=== PATIENT | male | born 1955 | race Caucasian/White ===

== ENCOUNTER 2020-03-24 09:16 | Outpatient (CLI) | payer OTHER, SELFPAY ==
--- NOTE | ~2020-03-24 | US_ITS ---
EXAMINATION: US aorta [facility] DATE: 03/24/2020 10:31 INDICATION: Screening for abdominal aortic aneurysm. Hypertension and diabetes. TECHNIQUE: Grayscale, color Doppler, and pulsed Doppler images of the aorta and common iliac arteries were obtained. COMPARISON: None. FINDINGS: The proximal aorta measures 2.8 cm. The mid aorta measures 2.0 cm. The distal aorta measures 1.9 cm. The right common iliac artery measures 1.3 cm. The left common iliac artery measures 1.4 cm. IMPRESSION: 1. No abdominal aortic aneurysm. Reviewed, dictated and finalized at location A.
== END 2020-03-24 09:17 | disposition home or self-care (01) ==
PROVIDERS: Visit Provider Student in an Organized Health Care Education/Training Program
DX: Z13.6 Encounter for screening for cardiovascular disorders (principal); F17.201 Nicotine dependence, unspecified, in remission
CPT/HCPCS: 76706

== ENCOUNTER → 2020-11-14 10:11 | Outpatient (CLI) | payer OTHER, SELFPAY ==
--- NOTE | ~2020-11-14 | US_ITS ---
EXAMINATION: US soft tissue head and neck DATE: 11/14/2020 10:27 INDICATION: Skin nodule of the head located cephalad to the right eyebrow TECHNIQUE: Multiple grayscale and Doppler ultrasound images of the region of concern cephalad to the right eyebrow were obtained. COMPARISON: CT dated 01/03/2009 FINDINGS: 11 x 2 x 11 mm well-defined ovoid subgaleal mass corresponding to the palpable abnormality. No eviden t internal vascular flow on power color Doppler. There is no evident and involvement of the underlyin g calvarium which demonstrates a smooth echogenic cortical margin. IMPRESSION: 1. Well-defined 11 x 2 x 11 mm subgaleal opacities right supraorbital region. Differential would incl ude lipoma, dermoid cyst, epidermoid cyst and less likely trichilemmal cyst, hematoma or abscess in t he proper clinical setting. Malignancy either primary or metastatic and slow flow vascular malformati on would be less likely given the relatively well delineated margins and absence of evident bone invo lvement. Reviewed, dictated and finalized at location A. KER ON IMPRESSION: 1. Well-defined 11 x 2 x 11 mm subgaleal opacities right supraorbital region. D ifferential would include lipoma, dermoid cyst, epidermoid cyst and less likely trichilemmal cyst, hematoma or abscess in the proper clinical setting. Maligna ncy either primary or metastatic and slow flow vascular malformation would be l ess likely given the relatively well delineated margins and absence of evident bone involvement.
== END ==
PROVIDERS: PCP Student in an Organized Health Care Education/Training Program; Visit Provider Student in an Organized Health Care Education/Training Program
DX: R22.0 Localized swelling, mass and lump, head (principal)
CPT/HCPCS: 76536

== ENCOUNTER 2024-01-07 09:35 | Outpatient (CLI) | payer OTHER, SELFPAY ==
--- NOTE | ~2024-01-07 | US_ITS ---
EXAMINATION: US right upper quadrant DATE: 01/07/2024 10:10 INDICATION: Abnormal levels of other serum enzymes TECHNIQUE: Multiple grayscale and Doppler ultrasound images of the abdomen were obtained. COMPARISON: None available FINDINGS: The head and body of the pancreas are normal. The pancreatic tail is obscured by bowel gas. The liver is normal with normal echogenicity and echotexture. No surface nodularity. Normal hepatope deisy flow in the main portal vein. The gallbladder is normal with no abnormal wall thickening, pericho lecystic fluid or stones. The normal common bile duct measures 5 mm. There was no sonographic Avery sign. IMPRESSION: 1. Normal sonographic study of the gallbladder. Reviewed, dictated and finalized at location L. ERENCE ASSISTANT
--- NOTE | ~2024-01-07 | US_ITS ---
EXAMINATION: US retroperitoneal comp DATE: 01/07/2024 10:10 INDICATION: Disorder of kidney and ureter with decreased renal function TECHNIQUE: Multiple ultrasound grayscale images of the kidneys were obtained. COMPARISON: None. FINDINGS: The right kidney measures 11.6 x 6.2 x 6.9 cm. The left kidney measures 12.0 x 5.7 x 4.4 cm. The kidn eys demonstrate normal echogenicity. There are multiple small echogenic and shadowing stones at both the left and right kidneys. There is no hydronephrosis in either kidney. The bladder is normal. IMPRESSION: 1. Bilateral nonobstructing nephrolithiasis. No hydronephrosis at either kidney. Reviewed, dictated and finalized at location A. F LIBRARIAN WORK WITH BLIND IMPRESSION: 1. Bilateral nonobstructing nephrolithiasis. No hydronephrosis at either kidne y.
== END 2024-01-07 09:36 ==
PROVIDERS: PCP Student in an Organized Health Care Education/Training Program; Visit Provider Student in an Organized Health Care Education/Training Program
DX: R74.8 Abnormal levels of other serum enzymes (principal); N28.9 Disorder of kidney and ureter, unspecified; N20.0 Calculus of kidney
CPT/HCPCS: 76705; 76770

== ENCOUNTER 2024-06-16 11:26 | Emergency (ER) | payer OTHER, SELFPAY ==
--- NOTE | ~2024-06-16 | XR_ITS ---
EXAMINATION: XR elbow LT min 3V DATE: 06/16/2024 11:55 INDICATION: Left elbow pain. TECHNIQUE: 4 views of left elbow were obtained. COMPARISON: None. FINDINGS: Bone alignment is normal. No fracture. 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 There is heterotopic ossification lateral to the elbow joint and in the area of the triceps tendon. No elbow joint effusion. There is soft tissue swelling overlying the olecranon. IMPRESSION: 1. Severe elbow joint osteoarthritis. 2. Olecranon bursitis. 3. Heterotopic ossification in the area of the triceps tendon. If there is clinical concern for rani ps tendon tear, consider MRI. Reviewed, dictated and finalized at location A. IMPRESSION: 1. Severe elbow joint osteoarthritis. 2. Olecranon bursitis. 3. Heterotopic ossification in the area of the triceps tendon. If there is clin ical concern for triceps tendon tear, consider MRI.
[2024-06-16 11:36] VITALS: BP 132/77; PULSE 88; RESP 16; TEMP 36.7; O2SAT 99
[2024-06-16 11:39] VITALS: BP 132/77; PULSE 88; RESP 16; TEMP 36.7; O2SAT 99
--- NOTE | 2024-06-16 11:43 | ED.UPPEXIN ---
HPI - Extremity Injury (Upper) General Chief Complaint: Extremity Injury, Upper Stated Complaint: Left Elbow Pain Source: patient, RN notes reviewed and old records reviewed Mode of arrival: ambulatory Limitations: no limitations History of Present Illness HPI narrative: Patient presents with complaints of left elbow pain and swelling. He reports that while lifting weights 2 days ago he heard a snap and felt a pop. Shortly after that he began to notice the pain and swelling. Patient takes 2 hydrocodone daily at baseline, has not been taking anything additional for pain. He reports that his ADLs are not affected by this. He denies any fever, chills, sweats. He retains full range of motion, but does report a sensation of stiffness with this. He is right-hand dominant. He voices no other concerns or complaints today. Related Data Home Medications Medication Instructions Recorded Confirmed empagliflozin 25 mg tablet 25 mg PO DAILY 06/16/24 06/16/24 (Jardiance) glipizide 10 mg tablet, extended 10 mg PO QAM 06/16/24 06/16/24 release 24 hr hydrocodone 7.5 mg-acetaminophen 1 tablet PO BID 06/16/24 06/16/24 325 mg tablet levothyroxine 100 mcg tablet 100 mcg PO DAILY 06/16/24 06/16/24 losartan 100 mg tablet 100 mg PO DAILY 06/16/24 06/16/24 metformin 1,000 mg tablet 1,000 mg PO BID 06/16/24 06/16/24 simvastatin 10 mg tablet 10 mg PO HS 06/16/24 06/16/24 tadalafil 5 mg tablet 5 mg PO DAILY 06/16/24 06/16/24 Allergies Allergy/AdvReac Type Severity Reaction Status Date / Time No Known Allergies Allergy Mild Unverified 06/16/24 11:33 Review of Systems Review of Systems: All systems reviewed & are unremarkable except as noted in HPI and below Constitutional: Constitutional: Reports no additional constitutional complaints ENT: Reports system reviewed and no additional complaints, except as documented Cardiovascular: Cardiovascular: Reports no additional cardiovascular complaints Respiratory: Respiratory: Reports no additional respiratory complaints Gastrointestinal: Gastrointestinal: Reports no additional gastrointestinal complaints Musculoskeletal: Musculoskeletal: Reports no additional musculoskeletal complaints and Reports as per HPI Neurologic: Denies tingling and Denies paresthesias [facility] Family History Family History Mother Family history of lymphoma Father Family history of throat cancer Social History Social History Alcohol intake: current Comments At the time of my signature, I reviewed and agree with the nursing past medical, surgical, social, and family history. There is no relevant family history pertinent to the patient complaint. Exam Const: General: cooperative, no acute distress, alert and awake Orientation/consciousness: oriented to person, oriented to place and oriented to time HENMT: Head: normal to inspection Resp: Effort & Inspection: normal respiratory effort and able to speak in complete sentences Auscultation: clear to auscultation bilaterally, no crackles, no rales, no rhonchi and no wheezes Cardio: Palpation: normal PMI Rate: regular rate Rhythm: regular rhythm Heart sounds: S1 normal heart sound present and S2 normal heart sound present Neuro: General: oriented to person, oriented to place and oriented to time Cranial nerves: Yes CN's II-XII intact bilaterally Extrem: Left upper extremity: normal capillary refill and elbow/forearm tenderness, swelling and normal ROM; no unusual warmth Psych: Appearance: grossly normal Thought process: Normal thought process present Insight: Good insight present (Psych) Judgement: Good judgement present (Psych) Course Course Level of Care: Express Care Visit Vital Signs Vital signs: Vital Signs Temperature 98.0 F 06/16/24 11:36 Pulse Rate 88 06/16/24 11:36 Respiratory Rate 16 06/16/24 11:36 Blood Press
== END 2024-06-16 12:20 | disposition home or self-care (01) ==
PROVIDERS: Emergency Provider Nurse Practitioner Family; PCP Student in an Organized Health Care Education/Training Program
DX: M70.22 Olecranon bursitis, left elbow (principal); E78.00 Pure hypercholesterolemia, unspecified; N40.0 Benign prostatic hyperplasia without lower urinary tract symptoms; E11.9 Type 2 diabetes mellitus without complications; E03.9 Hypothyroidism, unspecified
CPT/HCPCS: 73080; 99213; A4565; G0463

== ENCOUNTER 2025-01-28 12:47 | Outpatient (CLI) | payer OTHER, SELFPAY ==
--- NOTE | ~2025-01-28 | US_ITS ---
Right forearm. ULTRASOUND (Doppler ultrasound interrogation techniques used as needed for this exam.) Ordering provider: Jennifer Leyva MD History: . eval forehad mass lipoma vs nerve tumor . Comparison: None. FINDINGS/impression: Subcutaneous isoechoic area is seen measuring 1.1 x 0.3 x 1.1 cm. A lipoma, epidermoid cyst and lymph nodes are possibilities. Follow-up and clinical correlation advised. Reviewed, dictated and finalized at location A.
--- NOTE | ~2025-01-28 | US_ITS ---
Upper right back scapular area ULTRASOUND (Doppler ultrasound interrogation techniques used as needed for this exam.) Ordering provider: Jennifer Leyva MD History: . eval back mass lipoma vs bursitis . Comparison: None. FINDINGS/impression: Subcutaneous isoechoic area is seen measuring 3.1 x 0.7 x 3.3 cm which may represent a lipoma clinica l correlation advised.. Reviewed, dictated and finalized at location A.
== END 2025-01-28 12:48 | disposition home or self-care (01) ==
LOC: MICIMG 12:47
PROVIDERS: PCP Student in an Organized Health Care Education/Training Program; Visit Provider Plastic Surgery
DX: R22.0 Localized swelling, mass and lump, head (principal); R22.2 Localized swelling, mass and lump, trunk
CPT/HCPCS: 76536; 76604

== ENCOUNTER → 2025-02-15 12:03 | Outpatient (REF) | payer OTHER, SELFPAY ==
--- OUTSIDE RECORDS SUMMARY | 2025-02-15 13:24 | XMS_ITS | Encounter Summary ---
Author Organization [facility] Address [address] [facility] [place] [address] Care Team Providers Care Self Sealing Fuel Tank Repairer Name Role Phone Teagan Quintanachary Ken SUAZO Primary Care Provider + Encounter Details Date Type Department Care Team (Late st Contact Info) Description 12/09/2024 Telephone [facility] - [facility]opedic Surgery [address], [facility] [address] [place] [address] Darrius Bowen MD [address] [place] [address] Social History Tobacco Use Types Packs/Day Years Used Date Smoking Tobacco: Former Cigarettes Q uit: 11/04/1989 Smokeless Tobacco: Never Alcohol Use Standard Drinks/Week Comments Yes 0 (1 standard drink = 0.6 oz pur e alcohol) socially PHQ-2 Answer Date Recorded Patient Health Questionnaire-2 Score 0 10/20/2024 Sex and Gender Information Value Date Recorded Sex Assigned at Not on file Legal Sex Male 9:25 AM CDT Gender Identity Not on file Sexual Orientation Not on file documented as of this encounter Miscellaneous Notes * Telephone Encounter - Mohinder-Tawny Saravia - 12/09/2024 10:19 AM CST Current Provider: Dr Bowen Reason for Call: Pt called and is wanting to know if he needs to drive in or can apt be changed to telephone visit? Please call him and let him know. Patient Call Back Number: [phone] AL CHIEF CREATIVE OFFICER documented in this encounter Plan of Treatment Upcoming Encounters Date Type Department Care Team (Late st Contact Info) Description 03/08/2025 9:45 AM CDT Office Visit [facility] - [facility]opedic Surgery [address], [place] [address] [place] [id number] Darrius Bowen MD [address] [place] [address] documented as of this encounter Visit Diagnoses Not on filedocumented in this encounter Care Teams Self Sealing Fuel Tank Repairer Relationship Specialty Start Date End Date Von Quintana DO [address] [place] [id number] PCP - General Family Medicine Geriatric Medicine 09/07/24 documented as of this encounter
--- OUTSIDE RECORDS SUMMARY | 2025-02-15 13:24 | XMS_ITS | Encounter Summary ---
Author Organization [facility] Address [address] [place] [address] Care Team Providers Care Modular Set Crew Member Name Role Phone Von Quintana Primary Care Provider + Encounter Details Date Type Department Care Team (Late st Contact Info) Description 03/10/2021 Prep for Procedure [facility] [place], [place] [id number] Ross Alba MD [address] [id number] Social History Tobacco Use Types Packs/Day Years Used Date Smoking Tobacco: Former Cigarettes 1.5 20 1 972 - 1991 Smokeless Tobacco: Never Alcohol Use Standard Drinks/Week Comments Yes 0 (1 standard drink = 0.6 oz pur e alcohol) social AUDIT-C Answer Date Recorded Q1: How often do you have a drink containing alc ohol? Monthly or less 06/20/2020 Average Number of Drinks Not on file 020 Frequency of Binge Drinking Not on file 06/04 PHQ-2 Answer Date Recorded PHQ-2 Score 0 11/05/2019 Sex and Gender Information Value Date Recorded Sex Assigned at Male 11/19/2024 8:40 AM GLUE MOUNTER OPERATOR Legal Sex Male 11:35 AM GLUE MOUNTER OPERATOR Gender Identity Male 11/19/2024 8:40 AM GLUE MOUNTER OPERATOR Sexual Orientation Not on file Occupation Industry Job Start Date Job End Date Not on file Not on file Not on file Not on file COVID-19 Exposure Response Date Recorded In the last month, have you been in contact with someone who was confirmed or suspected to have Coronavirus / COVID-19? No / Unsure 03/13/2021 8:02 AM CDT documented as of this encounter Plan of Treatment Upcoming Encounters Date Type Department Care Team (Late st Contact Info) Description 03/09/2025 10:00 AM CDT Laboratory Only [facility] [place] [address] [place] [address] Von Quintana DO [address] [place] [address] 04/20/2025 10:00 AM CDT Office Visit [facility] - [facility] [address] [facility], [facility] [address] [place] [address] Tomasa Sevilla MD [address] [facility], [facility] [address] [place] [address] documented as of this encounter Results * PRE-SURGICAL/PRE-PROCEDURE CORONAVIRUS (COVID 19) (03/10/2021 9:40 AM CDT) CORONAVIRUS SARS COV 2 PCR (RESP) NOT DETECTED NOT DETECTED 03/11/2021 4:41 PM CDT [email or web address] Comment: A Not Detected (negative) test result for this test means that SARS-CoV-2 RNA was not present in the specimen above the limit of detection. A negative result does not rule out the possibility of COVID-19 and should not be used as the sole basis for treatment or patient management decisions. If COVID-19 is still suspected, based on exposure history together with other clinical findings, re-testing should be considered in consultation with public health authorities. Laboratory test results should always be considered in the context of clinical observations and epidemiological data in making a final diagnosis and patient management decisions. This patient specimen was tested using an FDA EUA pooling method. Negative results from pooled testing should not be treated as definitive. If the patient's clinical signs and symptoms are inconsistent with a negative result or results are necessary for patient management, then the patient should be considered for individual testing. In very rare cases, estimated at about 8 in 1,000 (0.8%) or less patient specimens with low viral loads may not be detected in sample pools due to the decreased sensitivity of pooled testing. Please review the Fact Sheets and FDA authorized labeling available for health care providers and patients using the following websites: https://www.[employer]/home/Covid-19/HCP/rc- mqyw-zms5-feos-sheet.html https://www.[employer]/home/Covid-19/Patients/ cf-olbl-xai9-fact-sheet.html This test has been authorized by the FDA under an Emergency Use Authorization (EUA) for use by authorized laboratories. Due to the current public health emergency, [facility] is receiving a high volume of samples from a wide variety of swabs and media for COVID-19 testing. In order to serve patients during this public health crisis, samples from appropriate clinical sources are being tested. Negative test results derived from specimens received in non-commercially manufactured viral collection and transport media, or in media and sample collection kits not yet authorized by FDA for COVID-19 testing should be cautiously evaluated and the patient potentially subjected to extra precautions such as additional clinical monitoring, including collection of an additional specimen. Methodology: Nucleic Acid Amplification Test (NAAT) includes RT-PCR or TMA Additional information about COVID-19 can be found at the [facility] website: www.[email or web address]/Covid19. Test performed at [email or web address] [address] [place] [id number] Director: WENDY MCCRARY DO,MPH FIRST TEST UNKNOWN 03/10/2021 10:40 AM T [facility] EMPLOYED IN HEALTHCARE UNKNOWN 03/10/2021 10:40 AM T [facility] SYMPTOMATIC DEFINED BY CDC UNKNOWN 03/10/2021 10:40 AM T [facility] DATE OF SYMPTOM ONSET NO 03/10/2021 11:37 AM CDT [facility] HOSPITALIZATION STATUS UNKNOWN 03/10/2021 10:40 AM T [facility] PATIENT IN ICU UNKNOWN 03/10/2021 10:40 AM CDT [facility] RESIDENT OF CONGREGATE CARE UNKNOWN 03/10/2021 10:40 AM CDT [facility] NO 03/10/2021 11:37 AM CDT [facility] PATIENT'S RACE WHITE OR 03/10/2021 10:40 AM CDT [facility] ETHNICITY NONHISPANIC 03/10/2021 10:40 AM CDT [facility] SOURCE (QST) NASOPHARYNGEAL SWAB 03/10/2021 10:40 AM CDT [facility] NASOPHARYNGEAL SWAB / Unknown 03/10/2021 9:40 AM CDT Ross Alba MD MICROBIOLOGY - GENERAL ORDERABLE S Final Result Performing Organization Address City/[facility] Co de Phone Number [facility] [address] [place] [address], [email or web address] [address] [address], documented in this encounter Visit Diagnoses Diagnosis Positive colorectal cancer screening using Cologuard test- Primary documented in this encounter Additional Health Concerns Infection Onset Date Last Indicated Resolved Time COVID-19 Rule Out 03/10/2021 03/10/2021 03/11/2021 4:41 PM CDT Assessment Noted Time PHQ-9 Depression Total Score: 0 11/05/19 11:41 AM GLUE MOUNTER OPERATOR documented as of this encounter Care Teams Modular Set Crew Member Relationship Specialty Start Date End Date Von Quintana DO [address] [place] [id number] PCP - General FAMILY PRACTICE 11/05/19 documented as of this encounter
--- OUTSIDE RECORDS SUMMARY | 2025-02-15 13:24 | XMS_ITS | Encounter Summary ---
Author Organization [facility] Address [address] [facility] [place] [address] Care Team Providers Care Set Up And Charger Name Role Phone Von Quintana DO Primary Care Provider + Reason for Referral * Consultation (Urgent) - Closed Specialty Diagnoses / Procedures Referred By Contac t Referred To Contact Orthopedics Diagnoses Triceps tendon rupture, left, subsequent encounter Localized primary osteoarthritis of left elbow Olecranon bursitis of left elbow Von Quintana DO [address] [place] [address] Phone: tel: fax: [facility] - [facility]opedic Surgery [address] [place] [address] Phone: tel: Referral ID Status Reason Start Date Expiration Date V isits Requested Visits Authorized [id number] Closed Specialty Services Required 09/01/2024 09/01/2025 1 1 Encounter Details Date Type Department Care Team (Latest Contact Info) Description 09/01/2024 Transcribe Orders [facility] - Centralized Scheduling [address] [place] [address] Von Quintana DO [address] [place], [place] [phone] Triceps tendon rupture, left, subsequent encounter ; Localized primary osteoarthritis of left elbow; Olecranon bursitis of left elbow Social History Tobacco Use Types Packs/Day Years Used Date Smoking Tobacco: Never Assessed Sex and Gender Information Value Date Recorded Sex Assigned at Not on file Legal Sex Male 9:25 AM CDT Gender Identity Not on file Sexual Orientation Not on file documented as of this encounter Plan of Treatment Upcoming Encounters Date Type Department Care Team (Late st Contact Info) Description 03/08/2025 9:45 AM CDT Office Visit [facility] - [facility] [address], [place] [address] [place] [address] Darrius Bowen MD [address] [place] [address] Scheduled Referrals Name Type Priority Associated Diagnoses Orde r Schedule AMB REFERRAL TO ORTHOPEDICS Outpatient Referral Routine Triceps tendon rupture, left, subsequent encounter Localized primary osteoarthritis of left elbow Olecranon bursitis of left elbow 1 Occurrences starting 09/01/2024 until 09/01/2025 documented as of this encounter Visit Diagnoses Diagnosis Triceps tendon rupture, left, subsequent encounter- Primary Localized primary osteoarthritis of left elbow Olecranon bursitis of left elbow Olecranon bursitis documented in this encounter Care Teams Set Up And Charger Relationship Specialty Start Date End Date Von Quintana DO [address] [place] [id number] PCP - General Family Medicine Geriatric Medicine 09/07/24 documented as of this encounter
--- OUTSIDE RECORDS SUMMARY | 2025-02-15 13:24 | XMS_ITS | Clinical Summary ---
Author Organization [facility] Address [facility] [place] [address] Care Team Providers Care Electrical Instrument Maker Name Role Phone ClaytonbrendaMarlee romero Ken SUAZO Primary Care Provider + Allergies No known active allergies Medications fish oil 1000 MG Cap capsule Take 1 capsule (1,000 mg total) by mouth 2 (two) times daily. Active NARCAN 4 MG/0.1ML nasal spray 020 Active naproxen 500 MG tablet Take 1 tablet (500 mg total) by mouth 2 (two) times daily as needed. Active fluticasone propionate 50 MCG/ACT nasal spray 1 spray by Each Nostril route nightly. Active HYDROcodone-ac etaminophen (NORCO) 7.5-325 MG tablet TAKE 1 TABLET BY MOUTH ONCE DAILY TO TWICE DAILY NEEDED FOR 30 DAYS 022 Active CONTOUR NEXT TEST test stripIndicatio ns:Type 2 diabetes mellitus without complication, without long-term current use of insulin ([facility]/HCC [facility]) USE 1 NEW STRIP TO CHECK GLUCOSE ONCE DAILY DIRECTED 100 strip 1 022 Active testosterone cypionate (DEPO TESTOSTERONE) 200 MG/ML injection INJECT 0.5 (ONE-HALF) ML (CC) INTRAMUSCULARLY ONCE A WEEK, EVERY 7 DAYS 023 Active BD INTEGRA SYRINGE 21G X 1-2 3 ML Misc USE 1 SYRINGE NEEDED 023 Active omeprazole (PRILOSEC) 40 MG capsuleIndicat ions:Gastroeso phageal reflux disease, unspecified whether esophagitis present Take 1 capsule by mouth once daily 60 capsule 1 024 Active glipiZIDE XL (GLUCOTROL XL) 10 MG 24 hr tabletIndicati ons:Type 2 diabetes mellitus with microalbuminur ia, without long-term current use of insulin ([facility] HHS/HCC) Take 2 tablets (20 mg total) by mouth daily with breakfast. Do not break or crush tablet 180 tablet 1 025 Active levothyroxine (SYNTHROID) 100 MCG tabletIndicati ons:Hypothyroi dism, unspecified type Take 1 tablet by mouth once daily 90 tablet 1 025 Active metFORMIN (GLUCOPHAGE) 1000 MG tabletIndicati ons:Type 2 diabetes mellitus without complication, without long-term current use of insulin ([facility] HHS/HCC) TAKE 1 TABLET BY MOUTH TWICE DAILY WITH MEALS 180 tablet 1 025 Active tadalafil (CIALIS) 5 MG tablet Take 1 tablet (5 mg total) by mouth daily. 025 Active simvastatin (ZOCOR) 10 MG tabletIndicati ons:Hyperlipid emia associated with type 2 diabetes mellitus ([facility] HHS/HCC) TAKE 1 TABLET BY MOUTH ONCE DAILY AT BEDTIME 90 tablet 025 Active JARDIANCE 25 MG tabletIndicati ons:Type 2 diabetes mellitus with microalbuminur ia, without long-term current use of insulin ([facility] HHS/HCC) Take 1 tablet by mouth once daily 90 tablet 025 Active amLODIPine (NORVASC) 5 MG tabletIndicati ons:Stage 3a chronic kidney disease ([facility]),Hype rtension associated with type 2 diabetes mellitus ([facility] HHS/HCC) Take 1 tablet by mouth once daily 90 tablet 025 Active tadalafil (CIALIS) 20 MG tabletIndicati ons:Erectile dysfunction, unspecified erectile dysfunction type Take 0.5-1 tablets (10-20 mg total) by mouth daily as needed for Erectile Dysfunction. 30 tablet 023 2024 Discontinued(F ormulary change) JARDIANCE 25 MG tabletIndicati ons:Type 2 diabetes mellitus with microalbuminur ia, without long-term current use of insulin ([facility] HHS/HCC) Take 1 tablet by mouth once daily 90 tablet 024 03/24/ 2025 Discontinued simvastatin (ZOCOR) 10 MG tabletIndicati ons:Hyperlipid emia associated with type 2 diabetes mellitus (CMS/HCC HHS/HCC) TAKE 1 TABLET BY MOUTH ONCE DAILY AT BEDTIME 90 tablet 024 2024 Discontinued amLODIPine (NORVASC) 5 MG tabletIndicati ons:Stage 3a chronic kidney disease (CMS/HCC),Hype rtension associated with type 2 diabetes mellitus (CMS/HCC HHS/HCC) Take 1 tablet (5 mg total) by mouth daily. 30 tablet 1 025 2024 Discontinued Active Problems Problem Noted Date Diagnosed Date Atherosclerosis of aorta 09/15/2024 Stage 3a chronic kidney disease 11/26/2022 Positive colorectal cancer screening using Colog uard test 02/03/2021 Overview (02/03/2021): Added automatically from request for surgery [id number] Chronic low back pain 10/11/2020 Renal colic 10/11/2020 BMI 26.0-26.9,adult 03/15/2020 Arthritis of right wrist 11/05/2019 Hypothyroidism Hyperlipidemia associated wi th type 2 diabetes mellitus (CMS/HCC HHS/HCC) Hypertension associated with type 2 diabetes mellitus (CMS/HCC HHS/HCC) Diabetes mellitus (CMS/HCC HHS/HCC) Arthritis Encounters Date Type Department Care Team Description 02/08/2025 Telephone [facility] [address] [address] Marlee Montero, DO Referral 01/28/2025 Scan Historic Futures INFO SRVCS Scanned, [facility] Ultrasound (SCAN) 01/25/2025 Telephone [facility] [address] [address] Marlee Montero, DO Record Request 01/21/2025 1:00 PM CDT Office Visit [facility] [address] [address] Marlee Montero, DO Lab Results (The patient presents for follow up on lab work. ); Hypertension (The patient presents for follow up on HTN ) 01/21/2025 Travel 01/14/2025 9:40 AM CDT Allied Health/Nurse Visit [address] [address] Marlee Montero, DO Hypertension 01/14/2025 9:20 AM CDT Laboratory Only [address] [address] Marlee Montero, DO 01/14/2025 Travel 12/17/[address] [address] Marlee Montero, Results 12/16/[address] [address] Marlee Montero, DO Referral 12/09/2024 Scan Coresonic INFO SRVCS Scanned, [facility] 11/30/2024 1:00 PM THERAPY SITE COORDINATOR Laboratory Only [address] [address] Marlee Montero, 11/30/2024 Travel 11/19/2024 8:20 AM THERAPY SITE COORDINATOR Office Visit [address] [address] Marlee Montero, DO Diabetes (Patient did not have labs completed. Will check A1C today ) 11/19/2024 Travel from Last 3 Months Immunizations Immunization Administration Dates Next Due Influenza Adult (Generic) 10/23/2023(Def erred: Patient Refused),07/19/2020 PFIZER COVID-19 (ORIGINAL FORMULATION, PURPLE CAP) mRNA, LNP-S, PF, 30 MCG/0.3 ML DOSE 02/01/2021 Pneumococcal (Pneumovax 23) 07/03/2019 Pneumococcal (Prevnar 13) 10/11/2020 Pneumococcal (Prevnar 20) 07/29/2024 Shingrix 06/07/2023,01/10/2023,10/21/2020 Tdap (Boostrix) 07/03/2019 Family History Medical History Relation Comments Cancer Father throat cancer Cancer Mother lymph node cance r Relation Status Comments Daughter Alive Father (Age 42) of cancer throat cancer Mother (Age 60s) of lymph node cancer Son 1 Alive Son 2 Alive Son 3 Alive Social History Tobacco Use Types Packs/Day Years Used Date Smoking Tobacco: Former Cigarettes 1.5 20 1 972 - 1991 Cigars Smokeless Tobacco: Never Tobacco Cessation:Counseling Given: Yes Comments:Quit, still smokes cigars when golfing Alcohol Use Standard Drinks/Week Comments Yes 6.7 (1 standard drink = 0.6 oz p ure alcohol) 4 cans of beer once a week AUDIT-C Answer Date Recorded Q1: How often do you have a drink containing alc ohol? Monthly or less 06/20/2020 Average Number of Drinks Not on file 020 Frequency of Binge Drinking Not on file 06/04 PHQ-2 Answer Date Recorded Patient Health Questionnaire-2 Score 0 11/19/2024 Sex and Gender Information Value Date Recorded Sex Assigned at Male 11/19/2024 8:40 AM THERAPY SITE COORDINATOR Legal Sex Male 11:35 AM THERAPY SITE COORDINATOR Gender Identity Male 11/19/2024 8:40 AM THERAPY SITE COORDINATOR Sexual Orientation Not on file Occupation Industry Job Start Date Job End Date Not on file Not on file Not on file Not on file Last Filed Vital Signs Vital Sign Reading Time Taken Comments Blood Pressure 114/76 01/21/2025 1:08 PM CDT Pulse 76 01/21/2025 1:08 PM CDT Temperature 36.4 C (97.5 F) 01/21/2025 1:08 PM CDT Respiratory Rate 16 01/21/2025 1:08 PM CDT Oxygen Saturation 98% 01/21/2025 1:08 PM CDT Inhaled Oxygen Concentration - - Weight 77.2 kg (170 lb 1.6 oz) 01/21/2025 1:08 P M CDT Height 177.8 cm (5' 10 ) 01/21/2025 1:08 PM CDT Body Mass Index 24.41 01/21/2025 1:08 PM CDT Plan of Treatment Upcoming Encounters Date Type Department Care Team (Late st Contact Info) Description 03/09/2025 10:00 AM CDT Laboratory Only [facility] [place] [address] [place] [address] Marlee Montero, [address] [place] [address] 04/20/2025 10:00 AM CDT Office Visit [facility] [address] [facility], [place] [address] [place] [address] Tomasa Sevilla MD 3 [facility], [place] [address] [place] [address] Health Maintenance Due Date Last Done Comments Annual Medicare Wellness Visit 05/17/2022 05/16/2021 Diabetes: Retinopathy Eye Exam 02/21/2025 02/26/2023 Postponed from 02/27/2024 (Future Appointment) Hemoglobin A1C 05/19/2025 11/19/2024, 07/06, 12/16/2023, Additional history exists Kidney Health Evaluation 07/29/2025 07/29/2024 Lipid Panel 07/29/2025 07/29/2024, 11/0 05/2023, 06/12/2022, Additional history exists RSV Immunization or 60+ Years (1 - Risk 60-74 years 1-dose series) 09/15/2025 Postponed fro m 2015 (Going to Outside Clinic) Colorectal Cancer Screening Colonoscopy (10 Years) 03/13/2026 03/13/2021, 03/13/2021, 03/13/2021 DTaP, Tdap and Td Vaccines (2 - Td or Tdap) 07/03/2029 07/03/2019 COVID-19 Vaccine ( - season) 2112 11/01/2021, 02/01/2021, 12/30/2020 Postponed from 07/05/2024 (Going to Outside Clinic) Colorectal Cancer Screening FIT-DNA (3 Years) Discontinued 07/26/2020 Hepatitis C Completed 06/12/2022 Zoster Vaccines Completed 06/07/2023, 030 07/2023, 10/21/2020 Pneumococcal Vaccine: 50+ Years Completed 07/29/2024, 10/11/2020, 07/03/2019 AAA SCREENING Completed 08/27/2024, 08/05, 04/08/2020 PHQ-2 (Physician [place]) Completed 11/19/2024 Meningococcal B Vaccine Aged Out No l onger eligible based on patient's age to complete this topic Meningococcal Vaccine Aged Out No wilman stef eligible based on patient's age to complete this topic RSV Immunizations Under 20 Months Aged Out No longer eligible based on patient's age to complete this topic Procedures Procedure Name Priority Date/Time Associated Diagnosis Comments ULTRASOUND GENERIC (SCAN ORDER) 01/28/2025 ULTRASOUND GENERIC (SCAN ORDER) 01/28/2025 BASIC METABOLIC PANEL Routine 01/14/2025 9:34 AM CDT Serum potassium elevated COLLECTION VENOUS BLOOD VENIPUNCTURE Routine 01/14/2025 9:30 AM CDT Serum potassium elevated COLLECTION VENOUS BLOOD VENIPUNCTURE Routine 11/30/2024 1:33 PM THERAPY SITE COORDINATOR Serum potassium elevated BASIC METABOLIC PANEL Routine 11/30/2024 1:33 PM THERAPY SITE COORDINATOR Serum potassium elevated COLLECT.CAPILLARY (FNGR,HEEL,EAR) Routine 11/19/2024 8:32 AM THERAPY SITE COORDINATOR Type 2 diabetes mellitus with microalbuminuria, without long-term current use of insulin ([facility]/HCC HHS/HCC) HEMOGLOBIN, GLYCOSYLATED Routine 11/19/2024 Type 2 diabetes mellitus with microalbuminuria, without long-term current use of insulin ([facility]/HCC HHS/HCC) CT CHEST WO CON Routine 08/27/2024 2:09 PM CDT Unintended weight loss LIPID PANEL Routine 07/29/2024 2:43 PM CDT Elevated serum GGT level Hyperlipidemia associated with type 2 diabetes mellitus Hypertension associated with type 2 diabetes mellitus Unintended weight loss DIABETIC RETINOPATHY EXAM (NEGATIVE)(SCAN ORDER) Routine 02/26/2023 HEPATITIS C ANTIBODY W/RFX TO HCV RNA Routine 06/12/2022 11:44 AM CDT Need for hepatitis C screening test COLONOSCOPY Routine 03/13/2021 10:03 AM CDT COLOGUARD (AMBULATORY) Routine 07/26/2020 Screening for colon cancer from Last 3 Months or Most Recently Relevant to Health Maintenance Results * ULTRASOUND GENERIC (SCAN ORDER) (01/28/2025) Only the most recent of2 resultswithin the time period is included. Anatomical Region Laterality Modality Other 01/28/2025 us [facility] Scanned SCANNING Final Resu lt * (ABNORMAL) BASIC METABOLIC PANEL (01/14/2025 9:34 AM CDT) Only the most recent of2 resultswithin the time period is included. SODIUM S/P/B 139 136 - 145 MMOL/L 01/14/2025 2:08 PM CDT [facility] POTASSIUM S/P/B 5.2(H) 3.5 - 5.1 MMOL/L 01/14/2025 2:08 PM CDT [facility] Comment:NO VISIBLE HEMOLYSIS CHLORIDE S/P/B 105 98 - 107 MMOL/L 01/14/2025 2:08 PM CDT [facility] CO2 24.5 21 - 32 MMOL/L 01/14/2025 2:08 PM CDT [facility] GLUCOSE 174(H) 70 - 99 MG/DL 01/14/2025 2:08 PM CDT [facility] BUN 47(H) 7 - 18 MG/DL 01/14/2025 2:08 PM CDT [facility] CREATININE S/P/B 1.94(H) 0.70 - 1.30 MG/DL 01/14/2025 2:08 PM CDT [facility] CALCIUM S/P/B 9.8 8.4 - 10.5 MG/DL 01/14/2025 2:08 PM CDT [facility] ANION GAP 9.5 5 - 15 MMOL/L 01/14/2025 2:08 PM CDT [facility] Comment:REFERENCE RANGE NOT ESTABLISHED OSMOLALITY (CALC) 304 MOSM/KG 025 2:08 PM CDT [facility] [place] Comment:REFERENCE RANGE NOT ESTABLISHED GFR ESTIMATE 37(L) >90 ML/MIN/1. 73 M2 01/14/2025 2:08 PM CDT [facility] GFR NOTES GFR REFERENCE S: 01/14/2025 2:08 PM T [facility] [place] Comment: THE ESTIMATED GFR IS CALCULATED USING THE 2020 CKD-EPI EQUATION. THE FOLLOWING CATEGORIES FOR GRADING RENAL FUNCTION ARE RECOMMENDED BY THE INTERNATIONAL SOCIETY OF NEPHROLOGY (KDIGO 2012 CLINICAL PRACTICE GUIDELINE). G1,NORMAL OR HIGH: >89 ml/min/1.73 m2 G2,MILDLY DECREASED: 60-89 ml/min/1.73 m2 G3A,MILDLY TO MODERATELY DECREASED: 45-59 ml/min/1.73 m2 G3B,MODERATELY TO SEVERELY DECREASED: 30-44 ml/min/1.73 m2 G4,SEVERELY DECREASED: 15-29 ml/min/1.73 m2 G5,KIDNEY FAILURE: <15 ml/min/1.73 m2 01/14/2025 9:34 AM CDT Marlee Montero DO LABORATORY Final Re sult [facility], [place] [address] [place] [address], [place] [phone] * HEMOGLOBIN, GLYCOSYLATED (11/19/2024) HGB A1C 8.3 % CHETAN BURCIAGA 11/19/2024 Marlee Montero DO LABORATORY Final Re sult [facility] [address] [place] [address], [place] * CT CHEST WO CON (08/27/2024 2:09 PM CDT) Anatomical Region Laterality Modality Chest Computed Tomogra phy 08/27/2024 2:41 PM CDT Impressions 08/27/2024 2:47 PM CDT IMPRESSION: ===== 1. No acute thoracic abdominal or pelvic abnormalities. No specific CT findings to explain weight loss. 2. Atherosclerotic aorta. 3. Diverticular disease with no evidence of diverticulitis. 4. Nonobstructing renal pelvic calcifications bilaterally. 5. Enlarged prostate. 6. Left inguinal hernia contains only fat. Referred By: MARLEE MONTERO Interpreted By: Jesus Alva MD, 08/27/2024 2:41 PM Narrative 08/27/2024 2:47 PM CDT [address] [address] EXAMINATION: CT Abdomen of the chest without contrast and CT of the and Pelvis with contrast [id number] EXAM DATE/TIME: 08/27/2024 1:55 PM REASON FOR EXAM: weight loss, abnormal labs Unintended weight loss of 20 pounds over the past 4 months. COMPARISON: None provided TECHNIQUE: Axial CT images of the chest obtained without the use of IV contrast agent. Subsequently axial CT images of the abdomen and pelvis are obtained following uneventful intravenous administration of 100 cc Isovue-370. Subsequent coronal and sagittal reformatted sequences are created for evaluation. A dose lowering technique was used for this procedure, which may include, but is not limited to, dose reduction technique, automated exposure control, iterative reconstruction, ALARA (As Low As Reasonably Achievable), or Image Gently techniques. FINDINGS: CHEST: Minimal breathing motion artifact in the mid and lower lungs limits evaluation for tiny nodules. No pleural effusion. No pneumothorax. Small areas of traction bronchiectasis in the medial right lung base. Calcified granuloma right middle lobe. No convincing abnormal soft tissue pulmonary nodules or masses. Central airways show no abnormal nodularity or masses. Left aortic arch. Thoracic aorta normal in caliber throughout with moderate calcifications. Heart size normal. No axillary or mediastinal lymphadenopathy. Calcified mediastinal lymph node again seen. Abdomen and pelvis: Liver and spleen normal in size and surface contour. No abnormal enhancing hepatic lesions. Gallbladder is contracted. Pancreas and adrenal glands unremarkable. Kidneys demonstrate symmetric uptake of contrast. No hydronephrosis or obstructive uropathy on either side. Multiple nonobstructing renal pelvic calcifications bilaterally. Ureters are normal in caliber. No hydronephrosis. Abdominal aorta normal in caliber throughout extensive calcifications and atherosclerotic disease. Bowel is normal in caliber. No evidence of bowel obstruction. Appendix normal. Prominent diverticular disease in the sigmoid colon. No significant free fluid in the pelvis. Enlarged prostate. Bladder contour is smooth. No fluid collections or lymphadenopathy in the abdomen or pelvis. Degenerative changes in the thoracolumbar spine. Focal sclerotic lesion in the left ilium is likely a bone island. No aggressive features identified. Left inguinal hernia contains only fat. ===== Procedure Note Jesus Alva MD - 08/27/[address] [address] EXAMINATION: CT Abdomen of the chest without contrast and CT of the andPelvis with contrast [id number] EXAM DATE/TIME: 08/27/2024 1:55 PM REASON FOR EXAM: weight loss, abnormal labs Unintended weight loss of 20 pounds over the past 4 months. COMPARISON: None provided TECHNIQUE: Axial CT images of the chest obtained without the use of IVcontrast agent. Subsequently axial CT images of the abdomen and pelvisare obtained following uneventful intravenous administration of 100 ccIsovue-370. Subsequent coronal and sagittal reformatted sequences arecreated for evaluation. A dose lowering technique was used for thisprocedure, which may include, but is not limited to, dose reductiontechnique, automated exposure control, iterative reconstruction, ALARA (AsLow As Reasonably Achievable), or Image Gently techniques. FINDINGS: CHEST: Minimal breathing motion artifact in the mid and lower lungs limitsevaluation for tiny nodules. No pleural effusion. No pneumothorax.Small areas of traction bronchiectasis in the medial right lung base.Calcified granuloma right middle lobe. No convincing abnormal soft tissuepulmonary nodules or masses. Central airways show no abnormal nodularityor masses. Left aortic arch. Thoracic aorta normal in caliber throughoutwith moderate calcifications. Heart size normal. No axillary ormediastinal lymphadenopathy. Calcified mediastinal lymph node againseen. Abdomen and pelvis: Liver and spleen normal in size and surface contour.No abnormal enhancing hepatic lesions. Gallbladder is contracted.Pancreas and adrenal glands unremarkable. Kidneys demonstrate symmetricuptake of contrast. No hydronephrosis or obstructive uropathy on eitherside. Multiple nonobstructing renal pelvic calcifications bilaterally.Ureters are normal in caliber. No hydronephrosis. Abdominal aorta normalin caliber throughout extensive calcifications and atheroscleroticdisease. Bowel is normal in caliber. No evidence of bowel obstruction.Appendix normal. Prominent diverticular disease in the sigmoid colon. Nosignificant free fluid in the pelvis. Enlarged prostate. Bladder contouris smooth. No fluid collections or lymphadenopathy in the abdomen orpelvis. Degenerative changes in the thoracolumbar spine. Focal scleroticlesion in the left ilium is likely a bone island. No aggressive featuresidentified. Left inguinal hernia contains only fat. ===== IMPRESSION: ===== 1. No acute thoracic abdominal or pelvic abnormalities. No specific CTfindings to explain weight loss. 2. Atherosclerotic aorta. 3. Diverticular disease with no evidence of diverticulitis. 4. Nonobstructing renal pelvic calcifications bilaterally. 5. Enlarged prostate. 6. Left inguinal hernia contains only fat. Referred By: MARLEE MONTERO Interpreted By: Jesus Alva MD, 08/27/2024 2:41 PM us Marlee Montero DO CT Final Re sult * (ABNORMAL) LIPID PANEL (07/29/2024 2:43 PM CDT) CHOLESTEROL 153 <200 MG/DL 07/30/2024 3:21 PM CDT [facility] TRIGLYCERIDES 252(H) <150 MG/DL 07/30/2024 3:21 PM CDT [facility] HDL 40(L) >40 MG/DL 07/30/2024 3:21 PM CDT [facility] LDL-C 63 <100 MG/DL 07/30/2024 3:21 PM CDT [facility] VLDL CALCULATION 50(H) 5 - 28 MG/DL 07/30/2024 3:21 PM CDT [facility] CHOL/HDL RATIO 3.8 0.0 - 4.0 07/30/2024 3:21 PM CDT [facility] LDL/HDL 1.6 0.41 - 2.13 07/30/2024 3:21 PM CDT [facility] NON HDL CHOLESTEROL 113 <140 MG/DL 07/30/2024 3:21 PM CDT [facility] 07/29/2024 2:43 PM CDT Marlee Montero DO LABORATORY Final Re sult Performing Organization Address [facility]/ZIP Co de Phone Number [facility] [address] [place] [address], * DIABETIC RETINOPATHY EXAM (NEGATIVE)(SCAN) (02/26/2023) [facility] Scanned SCANNING Final Resu lt Performing Organization Address [facility] Co de Phone Number [facility] ONBASE * HEPATITIS C ANTIBODY W/RFX TO HCV RNA ([facility]) (06/12/2022 11:44 AM CDT) HEPATITIS C AB NON-REACTI VE NON-REACT LISA [facility] SIGNAL TO CUTOFF 0.00 <[address] [facility] Comment: HCV antibody was non-reactive. There is no laboratory evidence of HCV infection. In most cases, no further action is required. However, if recent HCV exposure is suspected, a test for HCV RNA (test code 57841) is suggested. For additional information please refer to http://education.Baton/faq/EQP93u0 (This link is being provided for informational/ educational purposes only.) 06/12/2022 11:4 4 AM CDT 06/13/2022 5:14 AM CDT us Marlee Montero DO LABORATORY Final Re sult [facility] [address] [facility] [place] [address] * COLONOSCOPY (03/13/2021) us Documents Scanned SCANNING Final Result Performing Organization Address City/[facility]/ZIP Co de Phone Number [facility] * COLOGUARD (07/26/2020) COLOGUARD POSITIVE Stool specimen (specimen) 07/26/2020 us Marlee Montero DO AMBULATORY COLOGUARD (RT F) Final Result from Last 3 Months or Most Recently Relevant to Health Maintenance Insurance [employer] Care Teams Electrical Instrument Maker Relationship Specialty Start Date End Date Marlee Montero DO [address] [place] [id number] PCP - General FAMILY PRACTICE 11/05/19
--- OUTSIDE RECORDS SUMMARY | 2025-02-15 13:24 | XMS_ITS | Clinical Summary ---
Author Organization [facility] Address [address] [address] Care Team Providers Care Weatherization Administrator Name Role Phone Von Quintana DO Primary Care Provider + Source Comments [facility],non-owned Affiliates and Associated Physician Practices is amultiple site organization consisting of ambulatory clinics and hospital sitesin [place], [place], [place] and [place]. This disclosure is being madepursuant to the Care Everywhere program and may not contain all information available regarding this patient. Last updated 18.[facility] Allergies No known active allergies Medications * Be aware that medications may not be up to date on this document. Alwaysverify current medications with the patient. Jardiance 25 MG tablet Take 1 (one) tablet by mouth once daily 06/10/2024 Active fluticasone propionate (Flonase) 50 MCG/ACT nasal spray [place] 1 (one) spray into the nose at bedtime Active glipiZIDE CR 24hr (Glucotrol XL) 10 MG tablet TAKE 1 TABLET BY MOUTH ONCE DAILY WITH BREAKFAST. DO NOT BREAK OR CRUSH TABLET. 06/10/2024 Active HYDROcodone-ninfa taminophen ([place]) 7.5-325 MG tablet TAKE 1 TABLET BY MOUTH 1 TO 2 TIMES DAILY NEEDED 08/14/2024 Active levothyroxine (Synthroid) 100 MCG tablet Take 1 (one) tablet by mouth once daily 06/10/2024 Active losartan (Cozaar) 100 MG tablet Take 1 (one) tablet by mouth once daily 08/06/2024 Active metFORMIN (Glucophage) 1000 MG tablet Take 1 (one) tablet by mouth 2 times daily with morning and evening meal 06/10/2024 Active naproxen (Naprosyn) 500 MG tablet Take 1 (one) tablet by mouth 2 times daily as needed Active [place]-3 Fatty Acids (fish oil) 1000 MG capsule Take 1 (one) capsule by mouth 2 times daily Active omeprazole (PriLOSEC) 40 MG capsule Take 1 (one) capsule by mouth once daily Active simvastatin (Zocor) 10 MG tablet Take 1 (one) tablet by mouth at bedtime 07/14/2024 Active B-D 3CC LUER-ARVIN SYR 34HF6-7/2 21G X 1-1/2 3 ML MISC USE ONCE WEEKLY DIRECTED 08/12/2024 Active tadalafil (Cialis) 5 MG tablet Take 1 (one) tablet by mouth once daily 09/01/2024 Active testosterone cypionate (Depo-Testoster one) 200 MG/ML injection INJECT 0.5 ML INTO THE MUSCLE ONCE WEEKLY Active Active Problems Problem Noted Date Diagnosed Date Arthritis 09/28/2024 Diabetes mellitus 09/28/2024 Hyperlipidemia associated with type 2 diabetes m ellitus 09/28/2024 Hypertension associated with type 2 diabetes marifer litus 09/28/2024 Hypothyroidism 09/28/2024 Atherosclerosis of aorta 09/15/2024 Stage 3a chronic kidney disease 11/26/2022 Positive colorectal cancer screening using Colog uard test 02/03/2021 Overview (09/28/2024): Added automatically from request for surgery [id number] Chronic low back pain 10/11/2020 Renal colic 10/11/2020 Arthritis of right wrist 11/05/2019 Encounters Date Type Department Care Team Description 12/09/2024 1:45 PM STUDENT SERVICES DIRECTOR Office Visit [facility] - Orthopedic Surgery [address] [place] [address] Darrius Bowen MD Triceps strain, initial encounter (Primary Dx) 12/09/2024 Travel 12/09/2024 Telephone [facility] - Orthopedic Surgery [address] [place] [address] Darrius Bowen MD from Last 3 Months Family History Medical History Relation Name Comments Cancer Father Cancer Mother Relation Name Status Comments Father Mother Social History Tobacco Use Types Packs/Day Years Used Date Smoking Tobacco: Former Cigarettes Q uit: 11/04/1989 Smokeless Tobacco: Never Tobacco Cessation:Counseling Given: No Alcohol Use Standard Drinks/Week Comments Yes 0 (1 standard drink = 0.6 oz pur e alcohol) socially PHQ-2 Answer Date Recorded Patient Health Questionnaire-2 Score 0 10/20/2024 Sex and Gender Information Value Date Recorded Sex Assigned at Not on file Legal Sex Male 9:25 AM CDT Gender Identity Not on file Sexual Orientation Not on file Last Filed Vital Signs Vital Sign Reading Time Taken Comments Blood Pressure - - Pulse - - Temperature - - Respiratory Rate - - Oxygen Saturation - - Inhaled Oxygen Concentration - - Weight 77.1 kg (170 lb) 12/09/2024 1:27 PM STUDENT SERVICES DIRECTOR Height 177.8 cm (5' 10 ) 12/09/2024 1:27 PM STUDENT SERVICES DIRECTOR Body Mass Index 24.39 12/09/2024 1:27 PM STUDENT SERVICES DIRECTOR Plan of Treatment Upcoming Encounters Date Type Department Care Team (Late st Contact Info) Description 03/08/2025 9:45 AM CDT Office Visit [facility] - Orthopedic Surgery [address] [place] [address] Darrius Bowen MD [address] [facility] [address] [place] [address] Health Maintenance Due Date Last Done Comments COLOGUARD (AGES 45-75) - COLON CA SCREENING [address] COLONOGRAPHY - COLON CA SCREENING 1955 FIT - COLON CA SCREENING 1955 FLEX SIG - COLON CA SCREENING 1955 MEDICARE AWV 12 MONTHS 1955 DTAP/TDAP/TD VACCINES (1 - Tdap) 1974 PNEUMOCOCCAL VACCINE 50+ (1 of 2 - PCV) 1974 ZOSTER VACCINE (1 of 2) 2005 Respiratory Syncytial Virus (RSV) Vaccine Pt: or over 60 yrs (1 - Risk 60-74 years 1-dose series) 2015 AAA SCREENING 01/12/2020 COVID-19 VACCINE (2 - season) 2024 02/01/2021 DIABETES RETINOPATHY SCREENING 09/28/2024 DIABETES-FOOT EXAM WITH MONOFILAMENT 09/28/2024 DEPRESSION SCREENING 11/04/2024 10/26/2024 DIABETES - URINE PROTEIN SCREENING 11/04/2024 07/29/2024 DIABETES-HGB A1C 05/19/2025 11/19/2024, 07/29/2024 INFLUENZA VACCINE (Season Ended) 2025 07/19/2020 DIABETES-SERUM CREATININE 11/30/20252024, 09/15/2024, 09/15/2024, Additional history exists COLONOSCOPY - COLON CA SCREENING 03/13/2031 03/13/2021 Colorectal Cancer Screening 03/13/2031 HEPATITIS C SCREENING Completed 06/12/2022 HEPATITIS B VACCINE Aged Out No longe r eligible based on patient's age to complete this topic HIB VACCINE Aged Out No longer eligi ble based on patient's age to complete this topic HPV VACCINE Aged Out No longer eligi ble based on patient's age to complete this topic MENINGOCOCCAL (Group B) VACCINE SHARED DECISION-MAKING Aged Out No longer eligible based on patient's age to complete this topic MENINGOCOCCAL GROUPS A/C/Y/W VACCINE Aged Out No longer eligible based on patient's age to complete this topic Insurance [facility] MEDICARE [facility] Address: [address] [address] Care Teams Weatherization Administrator Relationship Specialty Start Date End Date Von Quintana DO [address] [place] [address] PCP - General Family Medicine Geriatric Medicine 09/07/24
== END ==
LOC: ANHLAB 12:03
PROVIDERS: PCP Student in an Organized Health Care Education/Training Program; Visit Provider Plastic Surgery
DX: D17.1 Benign lipomatous neoplasm of skin and subcutaneous tissue of trunk (principal)
CPT/HCPCS: 88304

== ENCOUNTER → 2025-03-01 11:27 | Outpatient (REF) | payer OTHER, SELFPAY ==
--- OUTSIDE RECORDS SUMMARY | 2025-03-01 13:30 | XMS_ITS | Encounter Summary ---
Author Organization [facility] Address [address] [place] [address] Care Team Providers Care Radio Disc Jockey Name Role Phone Von Quintana Primary Care Provider + Encounter Details Date Type Department Care Team (Late st Contact Info) Description 03/10/2021 Prep for Procedure [facility] One Day Services ONE [place], [place] [id number] Ross Alba MD [address] [phone] Social History Tobacco Use Types Packs/Day Years [...] Sex Assigned at Male 11/19/2024 8:40 AM CHILDCARE WORKER Legal Sex Male 11:35 AM CHILDCARE WORKER Gender Identity Male 11/19/2024 8:40 AM CHILDCARE WORKER Sexual Orientation Not on file Occupation Industry [...] 10:00 AM CDT Laboratory Only [facility] Family & Internal Medicine - [employer] [address] [place] [address] Von Quintana DO [address] [place] [address] 04/20/2025 10:00 AM CDT Office Visit [facility] Multispecialty Care - [facility] [address] [facility], [facility] [address] [place] [address] Tomasa Sevilla MD 3 [facility], [facility] [address] [place] [address] documented as of this encounter Results * PRE-SURGICAL/PRE-PROCEDURE CORONAVIRUS (COVID 19) (03/10/2021 9:40 AM CDT) CORONAVIRUS SARS COV 2 PCR (RESP) NOT DETECTED NOT DETECTED 03/11/2021 4:41 PM CDT [facility] Comment: A Not Detected (negative) test result [...] providers and patients using the following websites: https://www.[employer].nokisaki.com/home/Covid-19/HCP/rc- radf-kzm6-qmpl-sheet.html https://www.[employer].nokisaki.com/home/Covid-19/Patients/ ya-mspd-qtc7-fact-sheet.html This test has been authorized by the FDA under an Emergency Use Authorization (EUA) for use by authorized laboratories. Due to the current public health emergency, [employer] is receiving a high volume of samples [...] about COVID-19 can be found at the [employer] website: www.[employer].nokisaki.com/Covid19. Test performed at [facility] [place] [id number] [place] [phone] Director: WENDY MCCRARY DO,MPH FIRST TEST UNKNOWN 03/10/2021 10:40 AM T [facility] EMPLOYED IN HEALTHCARE UNKNOWN 03/10/2021 10:40 AM T [facility] SYMPTOMATIC DEFINED BY CDC UNKNOWN 03/10/2021 10:40 AM T [facility] DATE OF SYMPTOM ONSET NO 03/10/2021 11:37 AM CDT [facility] HOSPITALIZATION STATUS UNKNOWN 03/10/2021 10:40 AM T [facility] PATIENT IN ICU UNKNOWN 03/10/2021 10:40 AM CDT [facility] RESIDENT OF [place]ATE CARE UNKNOWN 03/10/2021 10:40 AM CDT [facility] NO 03/10/2021 11:37 AM CDT [facility] PATIENT'S RACE WHITE OR 03/10/2021 10:40 AM CDT [facility] ETHNICITY NONHISPANIC 03/10/2021 10:40 AM CDT [facility] SOURCE (QST) NASOPHARYNGEAL SWAB 03/10/2021 10:40 AM CDT [facility] NASOPHARYNGEAL SWAB / Unknown 03/10/2021 9:40 AM CDT Ross Alba MD MICROBIOLOGY - GENERAL ORDERABLE S Final Result Performing Organization Address City/[facility] Co de Phone Number [facility] [address] [place] [address], [facility] [address] [address], documented in this encounter Visit Diagnoses Diagnosis Positive colorectal cancer screening using Cologuard test- Primary documented in this encounter Additional Health Concerns Infection Onset Date Last Indicated Resolved Time COVID-19 Rule Out 03/10/2021 03/10/2021 03/11/2021 4:41 PM CDT Assessment Noted Time PHQ-9 Depression Total Score: 0 11/05/19 11:41 AM CHILDCARE WORKER documented as of this encounter Care Teams Radio Disc Jockey Relationship Specialty Start Date End Date Von Quintana DO [address] [place] [address] PCP - General FAMILY PRACTICE 11/05/19 documented as of this encounter
--- OUTSIDE RECORDS SUMMARY | 2025-03-01 13:30 | XMS_ITS | Encounter Summary ---
Author Organization [facility] Address [address] [place] [address] Care Team Providers Care Stave Bolt Equalizer Name Role Phone Von Quintana DO Primary Care Provider + Reason for Referral * Consultation (Urgent) - Closed Specialty Diagnoses / Procedures Referred By Contac t Referred To Contact Orthopedics Diagnoses Triceps tendon rupture, left, subsequent encounter Localized primary osteoarthritis of left elbow Olecranon bursitis of left elbow Von Quintana DO [address] [place] [address] Phone: tel: fax: [facility] - Orthopedic Surgery [address] [place] [address] Phone: tel: Referral ID Status Reason Start Date Expiration Date V isits Requested Visits Authorized [id number] Closed Specialty Services Required 09/01/2024 09/01/2025 1 1 Encounter Details Date Type Department Care Team (Latest Contact Info) Description 09/01/2024 Transcribe Orders [facility] - Centralized Scheduling [address] [place] [address] Von Quintana DO [address] [place], [place] [phone] Triceps tendon rupture, left, subsequent encounter ; [...] Orthopedic Surgery [address] [place] [address] Darrius Bowen MD [address] [place] [phone] Scheduled Referrals Name Type Priority Associated Diagnoses [...] bursitis documented in this encounter Care Teams Stave Bolt Equalizer Relationship Specialty Start Date End Date Von Quintana DO [address] [place] [address] PCP - General Family Medicine Geriatric Medicine 09/07/24 documented as of this encounter
--- OUTSIDE RECORDS SUMMARY | 2025-03-01 13:30 | XMS_ITS | Encounter Summary ---
Author Organization [facility] Address [address] [place] [address] Care Team Providers Care Alarm Investigator Name Role Phone Von Quintana DO Primary Care Provider + Reason for Visit * Reason Onset Date Comments Other 03/01/2025 Encounter Details Date Type Department Care Team (Late st Contact Info) Description 03/01/2025 Telephone [facility] Medical Group Family & Internal Medicine [facility] [address] [place] [address] Von Quintana DO [address] [place], [place] [phone] Other Social History Tobacco Use Types Packs/Day Years Used Date Smoking Tobacco: Former Cigarettes 1.5 20 1 2 - 1991 Cigars Smokeless Tobacco: Never Comments:Quit, still smokes cigars when golfing Alcohol [...] Sex Assigned at Male 11/19/2024 8:40 AM JANITOR CLEANER Legal Sex Male 11:35 AM JANITOR CLEANER Gender Identity Male 11/19/2024 8:40 AM JANITOR CLEANER Sexual Orientation Not on file Occupation Industry Job Start Date Job End Date Not on file Not on file Not on file Not on file documented as of this encounter Progress Notes * Emerald Loyola LPN - 03/01/2025 12:39 PM CDT Error not this office pt documented in this encounter Plan of Treatment Upcoming Encounters Date Type Department Care Team (Late st Contact Info) Description 03/09/2025 10:00 AM CDT Laboratory Only [facility] Family & Internal Medicine - [place] [address] [place] [address] Von Quintana DO [address] [place] [address] 04/20/2025 10:00 AM CDT Office Visit [facility] Multispecialty Care - [facility] 3 [facility], [facility] [address] [place] [address] Tomasa Sevilla MD 3 [facility], [facility] [address] [place] [address] documented as of this encounter Visit Diagnoses Not on filedocumented in this encounter Additional Health Concerns Assessment Noted Time PHQ-9 Depression Total Score: 0 11/20/19 22 11:25 AM JANITOR CLEANER documented as of this encounter Care Teams Alarm Investigator Relationship Specialty Start Date End Date Von Quintana DO [address] [place] [address] PCP - General FAMILY PRACTICE 11/05/19 documented as of this encounter
--- OUTSIDE RECORDS SUMMARY | 2025-03-01 13:30 | XMS_ITS | Encounter Summary ---
Author Organization [facility] Address [address] [place] [address] Care Team Providers Care Production Generalist Name Role Phone Von Quintana DO Primary Care Provider + Reason for Visit * Reason Onset Date Comments Referral 03/01/2025 Encounter Details Date Type Department Care Team (Late st Contact Info) Description 03/01/2025 Telephone [facility] Medical Group Family & Internal Medicine [facility] [address] [place] [address] Von Quintana DO [address] [place], [place] [phone] Referral Social History Tobacco Use Types Packs/Day Years [...] Sex Assigned at Male 11/19/2024 8:40 AM ACCOUNTING SOFTWARE SPECIALIST Legal Sex Male 11:35 AM ACCOUNTING SOFTWARE SPECIALIST Gender Identity Male 11/19/2024 8:40 AM ACCOUNTING SOFTWARE SPECIALIST Sexual Orientation Not on file Occupation Industry Job Start Date Job End Date Not on file Not on file Not on file Not on file documented as of this encounter Progress Notes * Wendy Cosme - 03/01/2025 12:53 PM CDT , diagnosis code S46.312D. Date of service 03/08/25, [facility] care orthopedics. . Phione [phone]. documented in this encounter Plan of Treatment Upcoming Encounters Date Type Department Care Team (Late st Contact Info) Description 03/09/2025 10:00 AM CDT Laboratory Only [facility] Family & Internal Medicine - [address] [address] Von Quintana DO [address] [place] [address] 04/20/2025 10:00 AM CDT Office Visit [facility] - [facility] 3 [facility], [facility] [address] [place] [address] Tomasa Sevilla MD 3 [facility], [facility] [address] [place] [address] documented as of this encounter Visit Diagnoses Not on filedocumented in this encounter Additional Health Concerns Assessment Noted Time PHQ-9 Depression Total Score: 0 11/20/19 22 11:25 AM ACCOUNTING SOFTWARE SPECIALIST documented as of this encounter Care Teams Production Generalist Relationship Specialty Start Date End Date Von Quintana DO [address] [place] [address] PCP - General FAMILY PRACTICE 11/05/19 documented as of this encounter
--- OUTSIDE RECORDS SUMMARY | 2025-03-01 13:30 | XMS_ITS | Clinical Summary ---
Author Organization [facility] Address [address] [facility] [place] [address] Care Team Providers Care Environmental Engineering Manager Name Role Phone Von Quintana DO Primary Care Provider + Source Comments [facility],non-owned Affiliates and Associated Physician Practices is amultiple site organization consisting of ambulatory clinics and hospital sitesin [place], [place], [place] and [place]. This disclosure is being madepursuant to the Care Everywhere program and may not contain all information available regarding this patient. Last updated 18.[facility] [employer] Allergies No known active allergies Medications * Be aware that medications may not be up to date on this document. Alwaysverify current medications with the patient. Jardiance 25 MG tablet Take 1 (one) tablet by mouth once daily 06/10/2024 Active fluticasone propionate (Flonase) 50 MCG/ACT nasal spray [place] 1 (one) spray into the nose at bedtime Active glipiZIDE CR 24hr (Glucotrol XL) 10 MG tablet TAKE 1 TABLET BY MOUTH ONCE DAILY WITH BREAKFAST. DO NOT BREAK OR CRUSH TABLET. 06/10/2024 Active HYDROcodone-ninfa taminophen ([place]) 7.5-325 MG tablet TAKE 1 TABLET BY [...] mouth 2 times daily as needed Active [place]-3 Fatty Acids (fish oil) 1000 MG capsule Take 1 (one) capsule by mouth 2 times daily Active omeprazole (PriLOSEC) 40 MG capsule Take 1 (one) capsule by mouth once daily Active simvastatin (Zocor) 10 MG tablet Take 1 (one) tablet by mouth at bedtime 07/14/2024 Active B-D 3CC LUER-ARVIN SYR 10RT0-5/2 21G X 1-1/2 3 ML MISC USE [...] (09/28/2024): Added automatically from request for surgery [id number] Chronic low back pain 10/11/2020 Renal colic 10/11/2020 Arthritis of right wrist 11/05/2019 Encounters Date Type Department Care Team Description 12/09/2024 1:45 PM SCHOOL ATHLETIC DIRECTOR Office Visit [facility] - [...] 77.1 kg (170 lb) 12/09/2024 1:27 PM SCHOOL ATHLETIC DIRECTOR Height 177.8 cm (5' 10 ) 12/09/2024 1:27 PM SCHOOL ATHLETIC DIRECTOR Body Mass Index 24.39 12/09/2024 1:27 PM SCHOOL ATHLETIC DIRECTOR Plan of Treatment Upcoming Encounters Date Type Department Care Team (Late st Contact Info) Description 03/08/2025 9:45 AM CDT Office Visit [facility] - Orthopedic Surgery [address] [place] [address] Darrius Bowen MD [address] [facility] [address] [place] [address] Health Maintenance Due Date Last Done [...] series) 2015 AAA SCREENING 01/12/2020 COVID-19 VACCINE ( season) 2024 02/01/2021 DIABETES RETINOPATHY SCREENING 09/28/2024 [...] patient's age to complete this topic Insurance MEDICARE SELF PAY NO INSURANCE Member Subscriber Plan / Payer (Ef fective for All Dates) Name:Cassie Nixon Member ID:Not on file Relation to Subscriber:Not on file Name:CASSIE NIXON Subscriber ID:Not on file (Home) Address: [place] [address] Payer ID:Not on file Group ID:Not on file Type:Self Pay Address: [place], [place] Care Teams Environmental Engineering Manager Relationship Specialty Start Date End Date Von Quintana DO [address] [place] [address] PCP - General Family Medicine Geriatric Medicine 09/07/24
--- OUTSIDE RECORDS SUMMARY | 2025-03-01 13:30 | XMS_ITS | Encounter Summary ---
Author Organization [facility] Address [address] [facility] [place] [address] Care Team Providers Care Sports Trainer Name Role Phone ClaytonTeagan chuchary Ken USAZO Primary Care Provider + Encounter Details Date Type Department Care Team (Late st Contact Info) Description 12/09/2024 Telephone [facility] - Orthopedic Surgery [address], [facility] [address] [place] [address] Darrius Bowen MD [address] [place] [address] Social History Tobacco Use Types [...] encounter Miscellaneous Notes * Telephone Encounter - Tawny Mclaughlin - 12/09/2024 10:19 AM CST Current Provider: Dr Bowen Reason for Call: Pt called and is wanting to know if he needs to drive in or can apt be changed to telephone visit? Please call him and let him know. Patient Call Back Number: [phone] M MEASURER documented in this encounter Plan of Treatment Upcoming Encounters Date Type Department Care Team (Late st Contact Info) Description 03/08/2025 9:45 AM CDT Office Visit [facility] - Orthopedic Surgery [address] [place] [phone] Darrius Bowen MD [address] [place] [address] documented as of this encounter Visit Diagnoses Not on filedocumented in this encounter Care Teams Sports Trainer Relationship Specialty Start Date End Date Von Quintana DO [address] [place] [address] PCP - General Family Medicine Geriatric Medicine 09/07/24 documented as of this encounter
--- OUTSIDE RECORDS SUMMARY | 2025-03-01 13:30 | XMS_ITS | Clinical Summary ---
Author Organization [facility] Address [facility] [place] [address] Care Team Providers Care Manufacturing Controls Engineer Name Role Phone ClaytonbrendaMarlee romero Ken SUAZO [...] complication, without long-term current use of insulin ([facility]/HCC [facility]) USE 1 NEW STRIP TO CHECK GLUCOSE [...] ia, without long-term current use of insulin (CMS/HCC HHS/HCC) Take 2 tablets (20 mg total) by mouth daily with breakfast. Do not break or crush tablet 180 tablet 1 025 Active levothyroxine (SYNTHROID) 100 MCG tabletIndicati ons:Hypothyroi dism, unspecified type Take 1 tablet by mouth once daily 90 tablet 1 025 Active metFORMIN (GLUCOPHAGE) 1000 MG tabletIndicati ons:Type 2 diabetes mellitus without complication, without long-term current use of insulin (CMS/HCC HHS/HCC) TAKE 1 TABLET BY MOUTH TWICE [...] ia, without long-term current use of insulin (CMS/HCC HHS/HCC) Take 1 tablet by mouth once daily 90 tablet 025 Active amLODIPine (NORVASC) 5 MG tabletIndicati ons:Stage 3a chronic kidney disease (CMS/HCC),Hype rtension associated with type 2 diabetes mellitus (CMS/HCC HHS/HCC) Take 1 tablet by mouth once [...] (02/03/2021): Added automatically from request for surgery [id number] Chronic low back pain 10/11/2020 Renal colic 10/11/2020 BMI 26.0-26.9,adult 03/15/2020 Arthritis of right wrist 11/05/2019 Hypothyroidism Hyperlipidemia associated wi th type 2 diabetes mellitus ([facility] HHS/HCC) Hypertension associated with type 2 diabetes mellitus ([facility] HHS/HCC) Diabetes mellitus ([facility]) Arthritis Encounters Date Type Department Care Team Description 03/01/2025 Telephone [facility] Family Internal [address] [address] Marlee Montero, DO Referral 03/01/[address] [address] Marlee Montero, DO Other 02/15/2025 Scan [facility] Scanned, [facility] Pathology (SCAN) 02/09/2025 Scan [facility] Scanned, [facility] 02/08/2025 Telephone [facility] Internal [address] [address] Marlee Montero, DO Referral 02/05/2025 Scan [facility] Scanned, [facility] 01/28/2025 Scan [facility] Scanned, [facility] Ultrasound (SCAN) 01/25/2025 Telephone [facility] Internal [address] [address] Marlee Montero, DO Record Request 01/21/2025 1:00 PM CDT Office Visit [address] [address] Marlee Montero, DO Lab Results (The patient presents for follow up on lab work. ); Hypertension (The patient presents for follow up on HTN ) 01/21/2025 Travel 01/14/2025 9:40 AM CDT Allied Health/Nurse Visit [facility] Internal [address] [address] Marlee Montero, DO Hypertension 01/14/2025 9:20 AM CDT Laboratory Only [address] [address] Marlee Montero, DO 01/14/2025 Travel 12/17/[address] [phone] Marlee Montero, DO Results 12/16/[address] [address] Marlee Montero, DO Referral 12/09/2024 Scan [facility] Scanned, [facility] from Last 3 Months Immunizations Immunization Administration [...] 2 - 1991 Cigars Smokeless Tobacco: Never Tobacco [...] Sex Assigned at Male 11/19/2024 8:40 AM [employer] Legal Sex Male 11:35 AM CAKE [employer]OSTER Gender Identity Male 11/19/2024 8:40 AM [employer]ER Sexual Orientation Not on file Occupation Industry [...] Description 03/09/2025 10:00 AM CDT Laboratory Only [facility] Medical [facility] [place] [address] [place] [phone] Marlee Montero, [address] [place] [address] 04/20/2025 10:00 AM CDT Office Visit [facility] - [facility] 3 [facility], [address] [id number] Tomasa Sevilla MD 3 [facility], [address] [address] Health Maintenance Due Date Last Done Comments Annual Medicare Wellness Visit 05/17/2022 05/16/2021 Diabetes: Retinopathy Eye Exam 02/27/2024 02/26/2023 Hemoglobin A1C 05/19/2025 11/19/2024, 07/06, 12/16/2023, Additional history exists Kidney Health Evaluation 07/29/2025 07/29/2024 Lipid Panel 07/29/2025 07/29/2024, 1105/2023, 06/12/2022, Additional history exists RSV Immunization or 60+ Years (1 - Risk 60-74 years 1-dose series) 09/15/2025 Postponed fro m 2015 (Going to Outside Clinic) Colorectal Cancer Screening Colonoscopy (10 Years) 03/13/2026 03/13/2021, 03/13/2021, 03/13/2021 DTaP, Tdap and Td Vaccines (2 - Td or Tdap) 07/03/2029 07/03/2019 COVID-19 Vaccine ( season) 2112 11/01/2021, 02/01/2021, 12/30/2020 Postponed from 07/05/2024 (Going to Outside Clinic) Colorectal Cancer Screening FIT-DNA (3 Years) Discontinued 07/26/2020 Hepatitis C Completed 06/12/2022 Zoster Vaccines Completed 06/07/2023, 07/2023, 10/21/2020 Pneumococcal Vaccine: 50+ Years Completed 07/29/2024, 10/11/2020, 07/03/2019 AAA SCREENING Completed 08/27/2024, 08/05, 04/08/2020 PHQ-2 (Physician Jackson) Completed 11/19/2024 Meningococcal B Vaccine Aged Out No l onger eligible based on patient's age to complete this topic Meningococcal Vaccine Aged Out No wilman stef eligible based on patient's age to complete this topic RSV Immunizations Under 20 Months Aged Out No longer eligible based on patient's age to complete this topic Procedures Procedure Name Priority Date/Time Associated Diagnosis Comments PATHOLOGY GENERIC (SCAN ORDER) 02/15/2025 ULTRASOUND GENERIC (SCAN ORDER) 01/28/2025 ULTRASOUND GENERIC (SCAN ORDER) 01/28/2025 BASIC METABOLIC PANEL Routine 01/14/2025 9:34 AM CDT Serum potassium elevated COLLECTION VENOUS BLOOD VENIPUNCTURE Routine 01/14/2025 9:30 AM CDT Serum potassium elevated HEMOGLOBIN, GLYCOSYLATED Routine 11/19/2024 Type 2 diabetes mellitus with microalbuminuria, without long-term current use of insulin (CMS/HCC HHS/HCC) CT ABD+PEL W CON Routine 08/27/2024 2:09 PM CDT Unintended [...] Recently Relevant to Health Maintenance Results * PATHOLOGY GENERIC (SCAN ORDER) (02/15/2025) 02/15/2025 us [employer] [facility] Scanned SCANNING Final Resu lt * ULTRASOUND GENERIC (SCAN ORDER) (01/28/2025) Only the most recent of2 resultswithin the time period is included. Anatomical Region Laterality Modality Other 01/28/2025 us [employer] [facility] Scanned SCANNING Final Resu lt * (ABNORMAL) BASIC METABOLIC PANEL (01/14/2025 9:34 AM CDT) [facility] SODIUM S/P/B 139 136 - 145 MMOL/L 01/14/2025 2:08 PM [facility] POTASSIUM S/P/B 5.2(H) 3.5 - 5.1 MMOL/L 01/14/2025 2:08 PM [facility] Comment:NO VISIBLE HEMOLYSIS CHLORIDE S/P/B 105 98 - 107 MMOL/L 01/14/2025 2:08 PM [facility] CO2 24.5 21 - 32 MMOL/L 01/14/2025 2:08 PM [facility] GLUCOSE 174(H) 70 - 99 MG/DL 01/14/2025 2:08 PM [facility] BUN 47(H) 7 - 18 MG/DL 01/14/2025 2:08 PM [facility] CREATININE S/P/B 1.94(H) 0.70 - 1.30 MG/DL 01/14/2025 2:08 PM [facility] CALCIUM S/P/B 9.8 8.4 - 10.5 MG/DL 01/14/2025 2:08 PM [facility] ANION GAP 9.5 5 - 15 MMOL/L 01/14/2025 2:08 PM [facility] Comment:REFERENCE RANGE NOT ESTABLISHED OSMOLALITY (CALC) 304 MOSM/KG 025 2:08 PM [facility] Comment:REFERENCE RANGE NOT ESTABLISHED GFR ESTIMATE 37(L) >90 ML/MIN/1. 73 M2 01/14/2025 2:08 PM [facility] GFR NOTES GFR REFERENCE S: 01/14/2025 2:08 PM [facility] Comment: THE ESTIMATED GFR IS CALCULATED USING [...] LABORATORY Final Re sult Performing Organization Address [facility]/ZIP Co de Phone Number [facility] [address] [place] [address], [place] [phone] * HEMOGLOBIN, GLYCOSYLATED (11/19/2024) HGB A1C 8.3 % [facility] 11/19/2024 Marlee Montero DO LABORATORY Final Re sult Performing Organization Address [facility] Co de Phone Number [facility] [address] [place] [address], [place] * CT ABD+PEL W CON (08/27/2024 2:09 PM CDT) Anatomical Region Laterality Modality Abdomen Computed Tomogra phy 08/27/2024 2:41 PM CDT [...] 2:41 PM Narrative 08/27/2024 2:47 PM [address]T [address] [address] EXAMINATION: CT Abdomen of the chest without contrast and CT of the and Pelvis with contrast [id number] EXAM DATE/TIME: 08/27/2024 1:55 PM REASON FOR [...] Procedure Note Jesus Alva MD - 08/27/[address] [address] EXAMINATION: CT Abdomen of the chest without contrast and CT of the andPelvis with contrast [id number] EXAM DATE/TIME: 08/27/2024 1:55 PM REASON FOR [...] 153 <200 MG/DL 07/30/2024 3:[address] PM [address] [facility] TRIGLYCERIDES 252(H) <150 MG/DL 07/30/2024 3:21 PM CD[address] [facility] HDL 40(L) >40 MG/DL 07/30/2024 3:21 PM CD[address] [facility] LDL-C 63 <100 MG/DL 07/30/2024 3:21 PM CDT [facility] VLDL CALCULATION 50(H) 5 - 28 MG/DL 07/30/2024 3:21 PM CD[address] [facility] CHOL/HDL RATIO 3.8 0.0 - 4.0 07/30/2024 3:21 PM CD[address] [facility] LDL/HDL 1.6 0.41 - 2.13 07/30/2024 3:21 PM CDT [facility] NON HDL CHOLESTEROL 113 <140 MG/DL 07/30/2024 3:21 PM CD[address] [facility] 07/29/2024 2:43 PM CDT Marlee Ken Montero DO LABORATORY Final Re sult -[facility] [address] [place] [address], [place] [phone] * DIABETIC RETINOPATHY EXAM (NEGATIVE)(SCAN) (02/26/2023) [facility] Scanned SCANNING Final Resu lt Performing Organization Address [facility] Co de Phone Number [facility] * HEPATITIS C ANTIBODY W/RFX TO HCV RNA ([facility]) (06/12/2022 11:44 AM CDT) Pathologist [facility] HEPATITIS C AB NON-REACTI VE NON-REACT LISA [facility] SIGNAL TO CUTOFF 0.00 <[address] [facility] Comment: HCV antibody was non-reactive. There is no laboratory evidence of HCV infection. In most cases, no further action is required. However, if recent HCV exposure is suspected, a test for HCV RNA (test code 01201) is suggested. For additional information please refer to http://education.Hmizate.ma/faq/USN99g8 (This link is being provided for informational/ educational purposes only.) 06/12/2022 11:4 4 AM CDT 06/13/2022 5:14 AM CDT Marlee Montero DO LABORATORY Final Re sult Performing Organization Address City/[facility]/ZIP Co de Phone Number [facility] [address] [place] [address] * COLONOSCOPY (03/13/2021) Documents Scanned SCANNING Final Result Performing Organization Address City/[facility]/ZIP Co de Phone Number [facility] * COLOGUARD (07/26/2020) Pathologist [facility] COLOGUARD POSITIVE Stool specimen (specimen) 07/26/2020 Marlee Montero DO AMBULATORY COLOGUAKADEN (RT F) Final Result from Last 3 Months or Most Recently Relevant to Health Maintenance Insurance [employer] Care Teams Manufacturing Controls Engineer Relationship Specialty Start Date End Date Marlee Montero DO [address] [place] [id number] PCP - General FAMILY PRACTICE 11/05/19
== END ==
LOC: ANHLAB 11:27
PROVIDERS: Visit Provider Plastic Surgery
DX: R22.0 Localized swelling, mass and lump, head (principal)
CPT/HCPCS: 88304